=== PATIENT | male | born 2000 | race Caucasian/White ===

== ENCOUNTER 2023-09-04 04:29 | Emergency (ER) | payer SELFPAY ==
[2023-09-04] MEDS ORDERED: Ketorolac Tromethamine 30 MG/ML VIAL ONE (05:05)
== END 2023-09-04 05:20 | disposition home or self-care (01) ==
LOC: CSHERS 04:29
DX: H60.92 Unspecified otitis externa, left ear (principal)
CPT/HCPCS: 96372; 99282; J1885

== ENCOUNTER 2023-10-20 08:36 | Emergency (ER) | payer MEDICAID ==
[2023-10-20 09:37] LABS: #Monocytes 0.6 10x3/uL (0.0-1.1); #Neutrophils 2.7 10x3/uL (1.5-8.4); %Basophils 0.3 % (0.0-2.0); %Eosinophils 0.5 % (0.0-6.0); %Lymphocytes 10.2 % (18.0-47.0); %Monocytes 16.1 % (0.0-10.0); %Neutrophils 72.6 % (40.0-75.0); Hematocrit 37.9 % (38.8-50.0); Hemoglobin 13.9 g/dL (13.5-17.5); Mean Corpuscular HGB CONC 36.7 g/dL (32.0-36.0); Mean Corpuscular Hemoglobin 30.8 pg (27.0-33.0); Mean Corpuscular Volume 83.8 fl (81.2-95.1); Mean Platelet Volume 10.6 fl (7.4-10.4); Platelet Count 122 10x3/uL (150-450); RBC Distribution Width 11.6 % (11.5-14.5); Red Blood Cell (RBC) Count 4.52 10x6/uL (4.32-5.72); White Blood Cell (WBC) Count 3.7 10x3/uL (3.5-10.5)
[2023-10-20 09:44] LABS: Reflex for Review?? NO
[2023-10-20 09:55] LABS: ALT (SGPT) 17 U/L (8-55); AST (SGOT) 23 U/L (5-34); Albumin 4.4 g/dL (3.5-5.0); Alkaline Phosphatase 40 U/L (40-110); Anion Gap 13 mmol/L (10-20); BUN (Urea Nitrogen) 14 mg/dL (8.9-20.6); Bilirubin, Total 1.4 mg/dL (0.2-1.2); Calc. Creatinine Clearance 0 mL/min (70-130); Calcium 8.8 mg/dL (7.8-10.44); Carbon Dioxide 20 mmol/L (22-29); Chloride 106 mmol/L (98-107); Estimated GFR 124; Globulin 3.1 g/dL (2.4-3.5); Glucose 121 mg/dL (70-105); Potassium 3.6 mmol/L (3.5-5.1); Protein, Total 7.5 g/dL (6.0-8.3); Sodium 135 mmol/L (136-145)
[2023-10-20 10:01] LABS: Platelet Adequacy Comment Appears Decreased
[2023-10-20 10:50] LABS: SARS-CoV-2 NAA Rapid Test DETECTED (NotDetected)
== END 2023-10-20 10:10 | disposition home or self-care (01) ==
LOC: CSHERS 08:36
DX: U07.1 COVID-19 (principal)
CPT/HCPCS: 80053; 85025; 99284

== ENCOUNTER 2023-11-21 21:05 | Emergency (ER) | payer MEDICAID | END 2023-11-21 21:50 | disposition home or self-care (01) | LOC: CSHERS 21:05 | DX: K02.9 Dental caries, unspecified (principal) | CPT/HCPCS: 99282 ==